=== PATIENT | female | born 1995 | race Caucasian/White ===

== ENCOUNTER 2017-10-20 05:32 | Emergency (ER) | payer OTHER ==
[2017-10-20 05:49] VITALS: BP 116/70; PULSE 71; RESP 18; TEMP 98.1; O2SAT 99
--- NOTE | 2017-10-20 05:50 | C.PDOC ---
History Of Present Illness Pt presents with dysuria, increased frequency this am. No f/c/n/v Time Seen by Provider: 10/20/17 05:50 Chief Complaint (Nursing): Female Genitourinary History Per: Patient History/Exam Limitations: no limitations Onset/Duration Of Symptoms: Hrs Current Symptoms Are (Timing): Still Present Severity: Moderate Pain Scale Rating Of: 4 Quality Of Discomfort: Burning Associated Symptoms: Urinary Symptoms. denies: Fever, Chills, Nausea Alleviating Factors: None Recent travel outside of the [place]: No Abnormal Vaginal Bleeding: No Past Medical History Reviewed: Historical Data, Nursing Documentation, Vital Signs Vital Signs: Last Vital Signs Temp 98.1 F 10/20/17 05:45 Pulse 71 10/20/17 05:45 Resp 18 10/20/17 05:45 BP 116/70 10/20/17 05:45 Pulse Ox 99 10/20/17 05:50 - Medical History PMH: Denies: Diabetes, Hepatitis, HIV (Pt has never been tested for HIV.), HTN, Chronic Kidney Disease, Seizures, Sexually Transmitted Disease Surgical History: Tonsillectomy - [facility] DETOXIFICATION SERVICES FOR SUBSTANCE ABUSE TREATMENT (02/14/17) GROUP SERVICE CREW SUPERVISOR FOR SUBSTANCE ABUSE TREATMENT, PSYCHOEDUCATION (02/14/17) INDIV PSYCHOTHERAPY FOR SUBSTANCE ABUSE TREATMENT, SUPPORT (02/14/17) PHARMACOTHERAPY FOR SUBSTANCE ABUSE, NICOTINE REPLACE (02/14/17) Family History: States: Unknown Family Hx - Social History Hx Alcohol Use: Yes Hx Substance Use: No Review Of Systems Constitutional: Negative for: Fever, Chills Gastrointestinal: Negative for: Nausea, Vomiting Genitourinary: Positive for: Dysuria, Frequency. Negative for: Incontinence Skin: Negative for: Rash Neurological: Negative for: Weakness Psych: Negative for: Anxiety Physical Exam - Physical Exam Appears: Non-toxic, No Acute Distress Gastrointestinal/Abdominal: Soft, No Tenderness, No Distention Back: No CVA Tenderness Extremity: Normal ROM Neurological/Psych: Oriented x3 Gait: Steady ED Course And Treatment O2 Sat by Pulse Oximetry: 99 Pulse Ox Interpretation: Normal Disposition Counseled Patient/Family Regarding: Studies Performed, Diagnosis, Need For Followup - Disposition Referrals: [facility] [Outside] [facility], [facility] [Outside] Disposition: HOME/ ROUTINE Disposition Time: 05:50 Condition: FAIR Additional Instructions: Please return if symptoms recur Prescriptions: Nitrofurantoin Macrocrystals [Macrobid] 1 cap PO BID #14 cap Phenazopyridine [Pyridium] 200 mg PO TID #6 tab Instructions: Urinary Tract Infection, Adult (DC), Acute Cystitis (DC) Forms: [employer] (Iraqi) - Clinical Impression Clinical Impression: UTI (urinary tract infection)
[2017-10-20 06:03] LABS: HCG,QUALITATIVE URINE NEGATIVE (NEGATIVE)
[2017-10-20 06:05] LABS: SQUAMOUS EPITHIAL 4 /hpf (0-5); URINE BILIRUBIN NEGATIVE (NEGATIVE); URINE BLOOD NEGATIVE (NEGATIVE); URINE CLARITY Hazy (Clear); URINE COLOR Yellow (YELLOW); URINE GLUCOSE (UA) NORMAL (Normal); URINE LEUKOCYTE ESTERASE 1+ Leu/uL (Negative); URINE PROTEIN NEGATIVE (NEGATIVE)
== END 2017-10-20 06:24 | disposition home or self-care (01) ==
LOC: C.ER 05:32
DX: N39.0 Urinary tract infection, site not specified (principal)

== ENCOUNTER 2017-11-12 21:15 | Inpatient (IN) | payer OTHER ==
[2017-11-12 22:51] VITALS: BMI 23.5
[2017-11-12 23:12] LABS: SQUAMOUS EPITHIAL 7 /hpf (0-5); URINE BACTERIA FEW (<OCC); URINE BILIRUBIN NEGATIVE (NEGATIVE); URINE BLOOD NEGATIVE (NEGATIVE); URINE CLARITY Hazy (Clear); URINE GLUCOSE (UA) NORMAL (Normal); URINE LEUKOCYTE ESTERASE TRACE Leu/uL (Negative); URINE PROTEIN NEGATIVE (NEGATIVE)
[2017-11-12 23:13] LABS: HCG,QUALITATIVE URINE NEGATIVE (NEGATIVE); URINE COLOR YELLOW (YELLOW)
[2017-11-12 23:22] LABS: BARBITURATES, UR NEGATIVE (NEGATIVE); BENZODIAZEPINES, UR NEGATIVE (NEGATIVE); PHENCYCLIDINE, UR NEGATIVE (NEGATIVE)
[2017-11-12 23:22] LABS: BASO % 0.7 % (0.0-2.0); EOS % 0.8 % (0.0-4.0); HEMOGLOBIN 11.8 g/dL (11.0-16.0); LYMPH # 1.4 K/uL (1.0-4.3); LYMPH % 29.2 % (20.0-40.0); MEAN CELL VOLUME 84.8 fL (81.0-99.0); MEAN CORPUSCULAR HEMOGLOBIN 28.9 pg (27.0-31.0); MEAN PLATELET VOLUME 9.2 fL (7.2-11.7); MONO # 0.4 K/uL (0.0-0.8); MONO % 8.1 % (0.0-10.0); NEUT # 2.9 K/uL (1.8-7.0); NEUT % 61.2 % (50.0-75.0); RBC 4.09 Mil/uL (3.80-5.20); RED CELL DISTRIBUTION WIDTH 14.1 % (11.5-14.5); WHITE BLOOD COUNT 4.7 K/uL (4.8-10.8)
[2017-11-12 23:24] LABS: OPIATES, UR POSITIVE (NEGATIVE)
[2017-11-12 23:35] LABS: ALB/GLOB RATIO 1.1 (1.0-2.1); ALT/SGPT 16 U/L (9-52); AST/SGOT 17 U/L (14-36); BLOOD UREA NITROGEN 11 mg/dL (7-17); CALCIUM 8.7 mg/dl (8.6-10.4); GFR AFRICAN-AMERICAN > 60; GFR NON-AFRICAN AMERICAN > 60
--- NOTE | 2017-11-13 00:50 | C.PDOC ---
History Of Present Illness 22 y/o female with a history of IV heroin and crack cocaine addiction presents to the ED for crisis evaluation. Patient admits to her last IV use was 4 hours prior to ED arrival. Her crisis counselor asked her to come in for admission. Denies withdrawal symptoms or fever. PMD: none provided Time Seen by Provider: 11/13/17 00:38 Chief Complaint (Nursing): Substance Abuse History Per: Patient History/Exam Limitations: no limitations Onset/Duration Of Symptoms: Hrs Current Symptoms Are (Timing): Still Present Modifying Factor(s): Narcotics, Cocaine Recent travel outside of the [place]: No Past Medical History Reviewed: Historical Data, Nursing Documentation, Vital Signs Vital Signs: Last Vital Signs Temp 97.7 F 11/13/17 01:30 Pulse 72 11/13/17 01:30 Resp 18 11/13/17 01:30 BP 108/57 L 11/13/17 01:30 Pulse Ox 98 11/13/17 03:10 - Medical History PMH: Denies: Diabetes, Hepatitis, HIV (Pt has never been tested for HIV.), HTN, Chronic Kidney Disease, Seizures, Sexually Transmitted Disease Other PMH: subtance abuse Surgical History: Tonsillectomy - [facility] Procedures DETOXIFICATION SERVICES FOR SUBSTANCE ABUSE TREATMENT (02/14/17) GROUP INTERNAL SALESPERSON FOR SUBSTANCE ABUSE TREATMENT, PSYCHOEDUCATION (02/14/17) INDIV PSYCHOTHERAPY FOR SUBSTANCE ABUSE TREATMENT, SUPPORT (02/14/17) PHARMACOTHERAPY FOR SUBSTANCE ABUSE, NICOTINE REPLACE (02/14/17) Family History: States: Unknown Family Hx - Social History Hx Alcohol Use: Yes Hx Substance Use: Yes Review Of Systems Except As Marked, All Systems Reviewed And Found Negative. Constitutional: Negative for: Fever, Other (withdrawal symptoms, here for crisis eval of substance abuse) Physical Exam - Physical Exam Appears: Well, No Acute Distress, Other (unremarkable with overall poor hygiene) Skin: Normal Color (no other skin abnormalities), Warm, Dry, Other (evidence of IV drug use with needle tract antecubital fossa) Head: Atraumatic, Normacephalic Eye(s): bilateral: Normal Inspection, PERRL, EOMI Nose: Normal Throat: Normal Neck: Normal Cardiovascular: Rhythm Regular, No Murmur Respiratory: Normal Breath Sounds, No Decreased Breath Sounds Gastrointestinal/Abdominal: Normal Exam, Soft, No Tenderness Back: Normal Inspection, No CVA Tenderness, No Vertebral Tenderness Extremity: Normal ROM, No Pedal Edema Neurological/Psych: Oriented x3 ED Course And Treatment - Laboratory Results Result Diagrams: 11/12/17 23:18 11/12/17 23:18 O2 Sat by Pulse Oximetry: 98 (RA) Pulse Ox Interpretation: Normal Medical Decision Making Medical Decision Making: Impression: IV drug use of crack cocaine and heroin addiction. Will perform routine crisis workup and evaluation. Initial Plan: * Crisis Evaluation Scribe Attestation: Documented by Justin Saunders acting as a scribe Joaquin Logan MD. Scribe Attestation: All medical record entries made by the Scribe were at my direction and personally dictated by me. I have reviewed the chart and agree that the record accurately reflects my personal performance of the history, physical exam, medical decision making, and the department course for this patient. I have also personally directed, reviewed, and agree with the discharge instructions and disposition. Disposition - Disposition Disposition: HOSPITALIZED Disposition Time: 08:35 Condition: GOOD - Clinical Impression Clinical Impression: Drug dependence
--- NOTE | 2017-11-13 02:01 | PCM.BM ---
<MarquisIveth gómez D - Last Filed: 11/13/17 02:00> Treatment Plan Problems - Problems identified on initial assessmt Opiate Dependence Date Initiated: 11/13/17 Time Initiated: 02:00 Assessment reference: NA Status: Active Benzodiazepine Dependence Date Initiated: 11/13/17 Time Initiated: 02:01 Assessment reference: NA Status: Active Treatment assets and liabiliti Patient Assests: cooperative, ADL independent Patient Liabilities: substance abuse - Milieu Protocol Maintain good personal hygiene: daily Encourage regular showers, daily Remind patient to perform daily oral care, daily Assist patient to perform ADL's Maintain personal safety: every shift Educate patient to report safety concerns to staff, every shift Monitor environment for contraband/sharps Medication safety: Monitor for expected outcome, potential side effects: every shift, Assess barriers to learning: every shift, Assess readiness for medication education: every shift <Vlad Larkin M - Last Filed: 11/14/17 16:41> - Diagnosis (1) Opioid use disorder, severe, dependence Status: Acute Interventions: 11/14/17 16:40 Assess 7x/week regarding severity of withdrawal * Educate regarding risks, benefits, side effects and alternatives of medications * Use Motivational Interviewing for abstinence * Use CBT for relapse prevention * Medication management for withdrawal symptoms * Encourage medication assisted treatment (2) Sedative, hypnotic or anxiolytic use disorder, severe, dependence Status: Acute Interventions: 11/14/17 16:40 Assess 7x/week regarding severity of withdrawal * Educate regarding risks, benefits, side effects and alternatives of medications * Use Motivational Interviewing for abstinence * Use CBT for relapse prevention * Medication management for withdrawal symptoms * Encourage medication assisted treatment (3) Cocaine use disorder, moderate, dependence Status: Acute Interventions: 11/14/17 16:41 Assess 7x/week regarding severity of withdrawal * Educate regarding risks, benefits, side effects and alternatives of medications * Use Motivational Interviewing for abstinence * Use CBT for relapse prevention * Medication management for withdrawal symptoms * Encourage medication assisted treatment
[2017-11-13 02:34] VITALS: RESP 18
[2017-11-13] MEDS ORDERED: Aluminum Hydroxide/Magnesium Hydroxide Susp (30 mL) PO PRN (11:51)
[2017-11-13] MEDS ORDERED: Multiple Vitamins Tab PO SCH (12:00)
--- NOTE | 2017-11-13 20:34 | PCM.PSYCH ---
Initial Psychiatric Evaluation - Initial Psychiatric Evaluation Type of Admission: Voluntary Legal Status: Capacity Chief Complaint (in patient's own words): I need help for my substance use. History of Present Illness and Precipitating Events: Patient is a 25 years old, single, unemployed, female who was admitted for the treatment of retrying from heroin, anxiolytics and cocaine. Patient reported history of depression since 16 years of age, no treatment. Heroin: Started using heroin about 19 years of age, was using 40-50 bags daily, IV. Her last use was yesterday. Longest period of abstinence was 4 months in 2016. History of 4 previous detox and no rehabilitation. Anxiolytics: She started using Xanax about 1 year ago, was using 3 sticks each of 2 mg daily. Last use 2 days ago, once take. Cocaine: Started one year ago, smoking, 2 times per month. Last used yesterday. Also smoking cigarettes, 10-12 cigarettes daily. Refused to get nicotine patch. Patient was born in [place], moved to [facility] at 8 years of age with family. She has some college education, not working. 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 She is single and has no children. Lives with her boyfriend. Her height is 5 feet 8 inches and weight is 155 pounds. Current Medications: Active Medications Generic Name Dose Route Start Last Admin Trade Name Freq PRN Reason Stop Dose Admin Al Hydrox/Mg Hydrox/Simethicone 30 ml 11/13/17 11:51 Maalox 30 Ml PO TID PRN Indigestion / Heartburn Chlordiazepoxide 25 mg 11/13/17 12:00 11/13/17 19:09 Librium PO 11/17/17 11:59 25 mg Q6 VANESSA Administration Taper Chlordiazepoxide 25 mg 11/13/17 11:58 Librium PO Q4H PRN Alcohol Withdrawal Ciprofloxacin 500 mg 11/13/17 12:00 11/13/17 19:09 Cipro PO 11/17/17 20:00 500 mg BID VANESSA Administration Protocol Clonidine HCl 0.1 mg 11/13/17 11:51 Catapres PO Q8 PRN COWS Score More or Equal to 5 Folic Acid 1 mg 11/13/17 12:00 11/13/17 12:45 Folic Acid PO Not Given DAILY VANESSA Gabapentin 300 mg 11/13/17 12:00 11/13/17 19:09 Neurontin PO 300 mg BID VANESSA Administration Hydroxyzine HCl 25 mg 11/13/17 06:35 Atarax PO Q6 PRN Anxiety Ibuprofen 400 mg 11/13/17 06:27 Motrin Tab PO Q6 PRN moderate pain 4-7 Loperamide HCl 2 mg 11/13/17 11:51 Imodium PO Q8 PRN Diarrhea Multivitamins 1 tab 11/13/17 12:00 11/13/17 12:45 Hexavitamin PO Not Given DAILY VANESSA Ondansetron HCl 4 mg 11/13/17 11:51 Zofran Tab PO Q8 PRN Nausea/Vomiting Thiamine HCl 100 mg 11/13/17 12:00 11/13/17 12:46 Vitamin B1 Tab PO Not Given DAILY VANESSA Trazodone HCl 50 mg 11/13/17 22:00 Desyrel PO HS VANESSA Past Psychiatric History - Past Psychiatric History Previous Treatment History: Inpatient Prior Professional Help: 4 previous detox History of Abuse: None reported History of ETOH/Drug Use: See HPI History of Family Illness: Reported her father is alcoholic. Pertinent Medical Hx (Current Medical&Sleep Prob, Allergies): Allergies Allergy/AdvReac Type Severity Reaction Status Date / Time No Known Allergies Allergy Verified 11/12/17 23:04 No Known Home Med 11/13/17 Review of Systems - Psychiatric Psychiatric: As Per HPI Mental Status Examination - Personal Presentation Personal Presentation: Looks stated age - Affect Affect: Depressed - Motor Activity Motor Activity: Calm - Reliability in Providing Information Reliability in Providing Information: Fair - Speech Speech: Organized - Mood Mood: Depressed - Formal Thought Process Formal Thought Process: No Impairment - Hallucinations/Delusions Hallucinations: Other (None reported) Delusions: Other - Obsessions/Compulsions Obsessions: None Compulsions: None - Cognitive Functions Orientation: Person, Place, Situation, Time Sensorium: Alert Attention/Concentration: Attentive Abstract Thinking: [place] Estimate of Intelligence: Average Judgement: Intact, as evidence by: Insight regarding need for hospitalization Memory: Recent intact, as evidence by: 3/3 object recall, Remote intact, as evidenced by: Ability to recall historical events - Risk Risk: Withdrawal, Diminished functioning - Strength & Assets Inventory Strength & Assets Inventory: Family support, Cooperative - Limitations Limitations: Other DSM 5 DX - DSM 5 DSM 5 Diagnosis: Opiate use disorder severe. Anxiolytics use disorder severe. Cocaine use disorder moderate. - Recommended/Plan of Treatment Treatment Recommendations and Plan of Treatment: Patient education. Supportive therapy. CBT for relapse prevention. WI for abstinence. Will start Librium detox protocol for anxiolytics withdrawal symptom. We'll start buprenorphine for opiate withdrawal symptom with appropriate. Other when necessary medications. Projected ELOS: 4-5 days Discharge Plan and Discharge Criteria: Patient will discuss with licensed master social worker to find a place for her for follow-up care. - Smoking Cessation Smoking Cessation Initiated: No Reason for not providing: Patient refused
[2017-11-14 11:17] VITALS: BP 105/68; PULSE 60; TEMP 97.9; O2SAT 98
--- NOTE | 2017-11-14 16:53 | PCM.PYCHDC ---
Mental Status Examination - Mental Status Examination Orientation: Person, Place, Situation, Time Memory: Intact Mood: Neutral Affect: Other (Appropriate) Speech: Appropriate Attention: WNL Concentration: WNL Association: WNL Fund of Knowledge: WNL Formal Thought Process: No Impairment Description of patient's judgement and insight: Poor Psychotic Thoughts and Behaviors: None Suicidal Ideation: No Current Homicidal Ideation?: No Discharge Summary - Discharge Note Reason for Hospitalization: Opiate use disorder Angiolytic use disorder Cocaine use disorder Laboratory Data: Reviewed Consultations:: List each consultation separately and include: 1. Reason for request. 2. Findings. 3. Follow-up Summary of Hospital Course include:: 1. Description of specific treatment plan utilized for patients during their course of treatmen. 2. Summarize the time- course for resolution of acute symptoms and/or regressed behaviors. 3. Describe issues identified and worked on during hospitalization. 4. Describe medication utilized. 5. Describe medical problems identified and treated. 6. Reassessment of suicide risk Summary of Hospital Course: Patient is a 25 years old, single, unemployed, female who was admitted for the treatment of retrying from heroin, anxiolytics and cocaine. Patient reported history of depression since 16 years of age, no treatment. Heroin: Started using heroin about 19 years of age, was using 40-50 bags daily, IV. Her last use was yesterday. Longest period of abstinence was 4 months in 2016. History of 4 previous detox and no rehabilitation. Anxiolytics: She started using Xanax about 1 year ago, was using 3 sticks each of 2 mg daily. Last use 2 days ago, once take. Cocaine: Started one year ago, smoking, 2 times per month. Last used yesterday. Also smoking cigarettes, 10-12 cigarettes daily. Refused to get nicotine patch. Patient was born in [place], moved to [facility] at 8 years of age with family. She has some college education, not working. 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 She is single and has no children. Lives with her boyfriend. Her height is 5 feet 8 inches and weight is 155 pounds. During her stay in the hospital patient was started on Librium detox protocol for anxiolytics withdrawal symptom. Other when necessary medications. Also planning to start buprenorphine for opiate withdrawal symptoms when appropriate. Today patient decided to leave the unit without completion of detox. Patient reported no withdrawal symptoms. Education provided to the patient. Patient was also educated that in case of any adverse event including decompensation, relapse, overdose or even of the patient, patient will be responsible for her actions. Patient understood and agreed but still refused to stay and left the unit AGAINST MEDICAL ADVICE. At the time of evaluation and discharge, patient was awake alert oriented 3, had no delusions, no auditory visual hallucinations, no suicidal ideations or homicidal ideations. Patient was discharged in a stable condition. - Diagnosis (1) Opioid use disorder, severe, dependence Status: Acute (2) Sedative, hypnotic or anxiolytic use disorder, severe, dependence Status: Acute (3) Cocaine use disorder, moderate, dependence Status: Acute - Final Diagnosis (DSM 5) Condition upon Discharge: SERIOUS Disposition: AGAINST MEDICAL ADVICE - Smoking Cessation Smoking Cessation Medication prescribed: No - Antipsychotic Medications Pt discharged on 2 or more routine antipsychotic medications: No
== END 2017-11-14 10:55 | disposition left against medical advice (07) | DRG 743 ==
LOC: C.ER 21:15 → C.7D 11-13 00:49
PROVIDERS: ADMIT Psychiatry & Neurology Psychiatry; ATTEND Psychiatry & Neurology Psychiatry
PROC: HZ2ZZZZ Detoxification Services for Substance Abuse Treatment (ICD-10-PCS; principal; 2017-11-13)
PROC: HZ59ZZZ Individual Psychotherapy for Substance Abuse Treatment, Supportive (ICD-10-PCS; 2017-11-13)
PROC: HZ46ZZZ Group Counseling for Substance Abuse Treatment, Psychoeducation (ICD-10-PCS; 2017-11-13)
DX: F11.20 Opioid dependence, uncomplicated (principal); F13.20 Sedative, hypnotic or anxiolytic dependence, uncomplicated; F14.20 Cocaine dependence, uncomplicated; F17.210 Nicotine dependence, cigarettes, uncomplicated